=== PATIENT | male | born 1980 | race Caucasian/White ===

== ENCOUNTER 2020-08-28 23:23 | Emergency (ER) | payer BC, OTHER ==
[~2020-08-28 23:23] MED LIST: LIDOCAINE PATCH REMOVAL MC SCH
[2020-08-28 23:30] VITALS: BP 116/76; PULSE 97; TEMP 98; BMI 25.7
[2020-08-28] MEDS ORDERED: KETOROLAC TROMETHAMINE 30 MG/1 ML VIAL IM ONE (23:42)
[2020-08-28] MEDS ORDERED: LIDOCAINE 5% TOPICAL PATCH TP ONE (23:42)
[2020-08-28] MEDS ORDERED: KETOROLAC TROMETHAMINE 30 MG/1 ML VIAL ONE (23:49)
[2020-08-28] MEDS ORDERED: LIDOCAINE 5% TOPICAL PATCH ONE (23:49)
== END 2020-08-29 01:22 | disposition home or self-care (01) ==
LOC: JER 23:23
PROC: 3E023GC Introduction of Other Therapeutic Substance into Muscle, Percutaneous Approach (ICD-10-PCS; principal; 2020-08-28)
DX: M54.5 Low back pain (principal); M25.531 Pain in right wrist; V00.321A Fall from snow-skis, initial encounter
CPT/HCPCS: 72100-TC-FY; 72170-TC-FY; 73110-TC-RT-FY; 73130-TC-RT-FY; 99284-25